=== PATIENT | male | born 1990 | race African-American/Black ===

== ENCOUNTER 2017-12-03 19:54 | Emergency (ER) | payer OTHER ==
[~2017-12-03] VITALS: Ht 180.3 cm; Wt 69.8 kg
[2017-12-03 20:18] LABS: HEMATOCRIT 42.6 % (38.0-50.0); HEMOGLOBIN 14.4 G/DL (12.5-16.6); MCH 28.6 PG (29.0-34.0); MCHC 33.8 G/DL (30.0-36.0); MCV 84.5 FL (86-99); PLATELET COUNT 282 K/uL (156-360); RBC DIS.WIDTH-CV 12.1 % (11.8-14.6); RBC DIS.WIDTH-SD 37.1 % (39-53); RED BLOOD COUNT 5.04 M/uL (4.00-5.50); WHITE BLOOD COUNT 6.9 K/uL (4.1-10.2)
[2017-12-03 20:32] LABS: CHLORIDE 102 mEq/L (99-109); POTASSIUM 3.9 mEq/L (3.7-5.4); SODIUM 139 mEq/L (136-147)
[2017-12-03 20:34] LABS: GLUCOSE 99 mg/dL (70-99)
[2017-12-03 20:38] LABS: GFR ESTIMATE (CALCULATED) > 59 mL/min/ (58.99-99999); UREA NITROGEN (BUN) 12 mg/dL (9-23)
[2017-12-03 20:46] LABS: TROP-I INTERPRETATION NEGATIVE; TROPONIN-I 0.01 ng/mL (0.0-0.30)
[2017-12-03] MEDS ORDERED: MOTRIN600 MG PO (21:49)
[2017-12-03 22:12] VITALS: BP 134/79
== END 2017-12-03 22:14 | disposition home or self-care (01) ==
LOC: EME 19:54
DX: R07.9 Chest pain, unspecified (principal)
CPT/HCPCS: 71046; 80048; 84484; 85027; 93005; 99281; 99284